=== PATIENT | female | born 1945 | race Caucasian/White ===

== ENCOUNTER 2018-11-15 09:24 | Day surgery (SDC) | payer MEDICARE ==
[~2018-11-15] VITALS: Ht 167.6 cm; Wt 72.3 kg
[~2018-11-15 09:24] MED LIST: Aspir 8181 MG PO; Imitrex100 MG PO; Inderal80 MG PO; Lipitor20 MG PO; OMEP20ER PO; Pravachol40 MG PO; RALO60 PO
== END 2018-11-15 11:00 | disposition home or self-care (01) ==
LOC: ORSCSDS 09:24
PROVIDERS: Internal Medicine Gastroenterology
PROC: 0DBL8ZX Excision of Transverse Colon, Via Natural or Artificial Opening Endoscopic, Diagnostic (ICD-10-PCS; principal; 2018-11-15 10:45)
PROC: 0DBK8ZX Excision of Ascending Colon, Via Natural or Artificial Opening Endoscopic, Diagnostic (ICD-10-PCS; principal; 2018-11-15 10:45)
DX: Z12.11 Encounter for screening for malignant neoplasm of colon (principal); Z86.010 Personal history of colon polyps; D12.3 Benign neoplasm of transverse colon; D12.2 Benign neoplasm of ascending colon; K64.4 Residual hemorrhoidal skin tags; K57.30 Diverticulosis of large intestine without perforation or abscess without bleeding; I48.91 Unspecified atrial fibrillation; Z80.0 Family history of malignant neoplasm of digestive organs; Z83.71 Family history of colonic polyps; Z79.82 Long term (current) use of aspirin; Z79.899 Other long term (current) drug therapy
CPT/HCPCS: 88305; J2704; J7120

== ENCOUNTER 2024-03-20 06:30 | Day surgery (SDC) | payer OTHER ==
[~2024-03-20] VITALS: Ht 167.6 cm; Wt 54.3 kg
[2024-03-20] MEDS ORDERED: SYSTANE GEL10 GM (07:09)
[2024-03-20] MEDS ORDERED: SYSTANE ULTRA P10 ML (07:09)
[2024-03-20] MEDS ORDERED: TRAZ100 (07:10)
[2024-03-20] MEDS ORDERED: NADOLOL 20 MG (07:10)
[2024-03-20] MEDS ORDERED: VENL25 (07:10)
[2024-03-20] MEDS ORDERED: CENTRUM SILVER1 EAC2 (07:11)
[2024-03-20] MEDS ORDERED: [UNRECOGNIZED DRUG - OTHER] (07:12)
[2024-03-20] MEDS ORDERED: CALCIUM CIT 311 EAC7 (07:13)
[2024-03-20] MEDS ORDERED: COLLAGEN (07:13)
[2024-03-20] MEDS ORDERED: PRESERVISION A1 EAC2 (07:14)
[2024-03-20] MEDS ORDERED: NAPR220 (07:16)
[2024-03-20] MEDS ORDERED: IRON 65MG (07:16)
[2024-03-20] MEDS ORDERED: Lactated Ringer's 1,000 ML IV ONE ×2 (07:18→07:51)
[2024-03-20] MEDS ORDERED: propofoL 20 ML IV ONE (07:30)
[2024-03-20 10:13] VITALS: BP 111/65
== END 2024-03-20 09:15 | disposition home or self-care (01) ==
LOC: ORSCSDS 06:30
PROVIDERS: Specialist
PROC: 0DBH8ZX Excision of Cecum, Via Natural or Artificial Opening Endoscopic, Diagnostic (ICD-10-PCS; principal; 2024-03-20 08:00)
DX: Z12.11 Encounter for screening for malignant neoplasm of colon (principal); Z86.0101 Personal history of adenomatous and serrated colon polyps; Z80.0 Family history of malignant neoplasm of digestive organs; Z83.719 Family history of colon polyps, unspecified; D12.0 Benign neoplasm of cecum; K64.8 Other hemorrhoids; K57.30 Diverticulosis of large intestine without perforation or abscess without bleeding; I47.10 Supraventricular tachycardia, unspecified; E78.5 Hyperlipidemia, unspecified; I10 Essential (primary) hypertension; R13.12 Dysphagia, oropharyngeal phase; Z86.73 Personal history of transient ischemic attack (TIA), and cerebral infarction without residual deficits; Z79.82 Long term (current) use of aspirin; Z79.899 Other long term (current) drug therapy
CPT/HCPCS: 88305; J2704; J7120

== ENCOUNTER 2024-07-30 09:42 | Day surgery (SDC) | payer OTHER ==
[~2024-07-30] VITALS: Ht 167.6 cm; Wt 56.6 kg
[~2024-07-30 09:42] MED LIST changes: +Balanced Salt Epinephrine Irrigation Solution 500 mL IR SCH; +CALCIUM CIT 311 EAC7; +CENTRUM SILVER1 EAC2; +COLLAGEN; +Diazepam 5 MG Tab PO PRN; +Diazepam 5 MG Tab PO SCH; +IRON 65MG; +Lidocaine HCl/Pf 1% 5 ML VIAL XX SCH; +Moxifloxacin HCL 0.5 MG/0.1 ML 0.4MLSYR LEFTEYE SCH; +NADOLOL 20 MG; +NAPR220; +Ondansetron 4 MG SoluTab MM PRN; +PHENYLEPHRINE\\TROPICAMIDE\\TETRACAINE OPHTHALMIC DILATING SOLN LEFTEYE PRN; +PRESERVISION A1 EAC2; +Povidone-Iodine 450 DROP/30 ML Solution LEFTEYE SCH; +Povidone-Iodine 450 DROP/30 ML Solution ONE; +SYSTANE GEL10 GM; +SYSTANE ULTRA P10 ML; +TRAZ100; +Tetracaine HCl/Pf 0.5% Opth Soln 4 ml ONE; +VENL25; +[UNRECOGNIZED DRUG - OTHER]
[2024-07-30] MEDS ORDERED: Diazepam 10 MG Tab ONE (09:54)
[2024-07-30] MEDS ORDERED: GABA300 PO (10:13)
--- NOTE | 2024-07-30 10:24 | NUR ---
07/30/24 1024 Benson Broussard VALIUM 10 MG PO ADMINISTERED AT 1006. PT REPORTS ANXIETY LEVEL 0/10 PRIOR TO VALIUM ADMINISTRATION. TETRACAINE ADMINISTERED AT 1007, PLEDGET PLACED AT 1008.
--- NOTE | 2024-07-30 10:39 | NUR ---
07/30/24 1039 Brittney Mi VITALS AT 1037 BP: 107/59 P: 57 O2: 97% 10 LITERS OF BLOW BY OXYGEN.
[2024-07-30 11:00] VITALS: BP 113/53
--- NOTE | 2024-07-30 11:03 | NUR ---
07/30/24 1103 Joy Keyes GABLANCO UNDER SHIELD PLACED BY DR MICHEL. GAUZE CLEAN DRY AND INTACT
== END 2024-07-30 11:19 | disposition home or self-care (01) ==
LOC: ORSCSDS 09:42
PROVIDERS: Student in an Organized Health Care Education/Training Program
PROC: 08RK3JZ Replacement of Left Lens with Synthetic Substitute, Percutaneous Approach (ICD-10-PCS; principal; 2024-07-30 11:00)
DX: H25.813 Combined forms of age-related cataract, bilateral (principal); H21.81 Floppy iris syndrome; Z86.73 Personal history of transient ischemic attack (TIA), and cerebral infarction without residual deficits; H33.322 Round hole, left eye; H35.89 Other specified retinal disorders; Z79.82 Long term (current) use of aspirin; Z79.899 Other long term (current) drug therapy
CPT/HCPCS: A9270; V2632